=== PATIENT | female | born 2000 | race African-American/Black ===

== ENCOUNTER 2023-07-07 13:09 | Outpatient (CLI) | payer OTHER, SELFPAY ==
--- NOTE | ~2023-07-07 | US_ITS ---
US OB <=14 wk fetus w TV 07/07/2023 14:12 Indication: Unknown gestational dates. Procedure: High-resolution ultrasound of the pelvis using transvaginal technique. Comparison: No prior studies for comparison. Findings: Uterus measures 6.3 x 4 x 3.3 cm. Endometrium measures 1 cm. Small amount of fluid in the e ndometrium. No gestational sac identified. No evidence for pole. Ovaries within normal limits w ith follicular changes. Right ovary measures 3.7 x 3.1 x 1.7 cm. Left ovary measures 2.7 x 2.4 x 2.5 cm. Small amount of free fluid in the pelvis. Impression: 1: No evidence for intrauterine . Consider very early intrauterine , failed pregnan cy and ectopic . Recommend follow-up with serial quantitative beta-hCG levels and ultrasound as clinically warranted. Reviewed, dictated and finalized at location L. S/MARKETING Impression: 1: No evidence for intrauterine . Consider very early intrauterine pre gnancy, failed and ectopic . Recommend follow-up with serial quantitative beta-hCG levels and ultrasound as clinically warranted.
[2023-07-07 15:00] LABS: Beta HCG Quantitative < 2.39 mIU/ML
== END 2023-07-07 13:10 | disposition home or self-care (01) ==
PROVIDERS: PCP Emergency Medicine; Visit Provider Emergency Medicine
DX: Z00.00 Encounter for general adult medical examination without abnormal findings (principal); N91.2 Amenorrhea, unspecified
CPT/HCPCS: 36415; 76801; 76817; 84702